=== PATIENT | male | born 1990 | race Caucasian/White ===

== ENCOUNTER 2019-08-26 13:37 | Outpatient (CLI) | payer BC ==
--- NOTE | 2019-08-26 14:17 | CT ---
CT Stone Protocol HISTORY: Microscopic hematuria and right flank pain. COMPARISON: None. FINDINGS: The lung bases are clear of infiltrative process. The liver, spleen, pancreas and gallbladder regions appear unremarkable given the limitations of a no ncontrast study. Right and left adrenal glands and right and left kidneys are normal in size. There are no renal calcu li identified. There is no obstruction or ureteral calculus. There is no significant periaortic or mesenteric lymphadenopathy. The appendix is normal in size, it is retrocecal in location. No inflamma tory change. CT of pelvis performed with contrast enhancement: There is no evidence of adenopathy, mass or free fl uid. Review of osseous structures show no findings. IMPRESSION: No acute findings of abdomen or pelvis. No renal or ureteral calculi.
== END 2019-08-26 13:38 | disposition home or self-care (01) ==
LOC: BICCT 13:37
PROVIDERS: ATTEND Urology
DX: R31.29 Other microscopic hematuria (principal)
CPT/HCPCS: 74176